=== PATIENT | female | born 1970 | race Caucasian/White ===

== ENCOUNTER 2022-12-03 07:38 | Emergency (ER) | payer BC ==
[~2022-12-03] VITALS: Ht 160 cm; Wt 88.5 kg
--- NOTE | 2022-12-03 07:38 | NUR ---
BROUGHT BACK TO BED #8 AND TRIAGED. REPORT GIVEN TO ADAN
[2022-12-03 07:40] VITALS: BP_SYST 131
--- NOTE | 2022-12-03 07:52 | NUR ---
PT COMES TO ER WITH C/O ANTERIOR CHEST WALL PAIN WHILE DRIVING. REPORTS SHARP PAIN RADIATING TO LEFT UPPER ARM WITH MILD SOB WITH DEEP INSPIRATION. PT VERBALIZES FEELING STRESSED AND ANXIOUS. RESP EVEN AND UNLABORED, ON RA @98%. SKIN W/D/I. PT VERBALIZES FEELING BETTER ALREADY. EKG IN PROCESS, WILL CONT TO MONITOR. PMH:HYPERLIPEDEMIA
--- NOTE | 2022-12-03 07:57 | NUR ---
DR MACHADO IN ROOM FOR EXAM
[2022-12-03] MEDS ORDERED: ASPIRIN 81 MG TAB.CHEW PO ONE (08:00)
--- NOTE | 2022-12-03 08:05 | NUR ---
LAB AT BEDSIDE
--- NOTE | 2022-12-03 08:08 | NUR ---
CXR AT BEDSIDE
[2022-12-03] MEDS ORDERED: IBUPROFEN 800 MG TABLET PO ONE (08:15)
[2022-12-03 08:22] LABS: BASOPHILS % (AUTO) 0.7 % (0.0-2.0); EOSINOPHILS # (AUTO) 0.2 K/uL (0.0-0.4); EOSINOPHILS % (AUTO) 2.5 % (0.0-4.0); HEMATOCRIT 42.8 % (36-48); HEMOGLOBIN 14.6 g/dL (12.0-16.0); LYMPHOCYTES # (AUTO) 2.7 K/uL (1.0-5.5); LYMPHOCYTES % (AUTO) 39.9 % (20.5-51.5); MEAN CORPUSCULAR HEMOGLOBIN 30 pg (27-31); MEAN CORPUSCULAR HGB CONC 34 % (32-36); MEAN CORPUSCULAR VOLUME 87 fL (79.0-98.0); MONOCYTES # (AUTO) 0.4 K/uL (0.0-1.0); MONOCYTES % (AUTO) 5.5 % (1.7-9.3); NEUTROPHILS # (AUTO) 3.5 K/uL (1.8-7.7); NEUTROPHILS % (AUTO) 51.4 % (40.0-70.0); PLATELET COUNT (AUTO) 161 K/uL (130-430); RED BLOOD CELL COUNT(AUTO) 4.91 MIL/uL (4.2-6.2); WHITE BLOOD COUNT (AUTO) 6.8 K/uL (4.8-10.8)
[2022-12-03 08:33] LABS: ANION GAP 7 (5-15); CALCIUM 9.2 mg/dL (8.4-11.0); CHLORIDE 102 mmol/L (98-107); CREATININE 0.71 mg/dL (0.55-1.30); GLUCOSE 137 mg/dL (70-99); UREA NITROGEN, BLOOD 16 mg/dL (8-21)
[2022-12-03 08:34] LABS: GFR AFRICAN AMERICAN 112 mL/min (>90)
[2022-12-03 08:40] LABS: ALANINE AMINOTRANSFERASE 43 U/L (12-78); ALBUMIN 3.8 g/dL (3.4-4.8); ASPARTATE AMINOTRANSFERASE 33 U/L (10-37); TOTAL BILIRUBIN 0.5 mg/dL (0.0-1.0); TRIGLYCERIDES 466 mg/dL (30-150)
--- NOTE | 2022-12-03 09:22 | NUR ---
NO ACUTE CHANGES IN CONDITION, WAITING FOR LAB RESULTS.
--- NOTE | 2022-12-03 12:08 | NUR ---
PT ELOPED FROM ER
== END 2022-12-03 12:08 | disposition left against medical advice (07) ==
LOC: SED 07:38
DX: R07.89 Other chest pain (principal); Z79.899 Other long term (current) drug therapy
CPT/HCPCS: 36415; 71045; 80053; 83880; 84478; 84484; 85025; 85379; 93005; 99285